=== PATIENT | male | born 2000 | race Caucasian/White ===

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

== ENCOUNTER → 2024-06-23 | Outpatient (CLI) | payer BC ==
[2024-06-24 02:49] LABS: Basophils # (A) 0.06 X 10*3/uL (0.00-0.10); Basophils % (A) 0.7 %; Eosinophils # (A) 0.09 X 10*3/uL (0.04-0.35); HCT 44.4 % (39.6-50.0); HGB 15.3 g/dL (13.0-17.0); Lymphocytes % (A) 31.4 %; MCH 29.8 pg (27.0-32.0); MCHC 34.5 g/dL (32.0-37.0); MCV 86.4 FL (80.0-97.0); Monocytes % (A) 8.1 %; NRBC Per 100 WBC 0 X 10*3/uL (0.00-0.01); Neutrophils # (A) 5.02 X 10*3/uL (1.80-7.70); Neutrophils % (A) 58.5 %; Platelet Count 280 X 10*3/uL (140-440); RBC 5.14 X 10*6/uL (4.40-5.60); RDW 11.4 % (11.5-14.5)
[2024-06-24 03:12] LABS: ALT 18 U/L (10-49); AST 17 U/L (14-35); Albumin 4.8 g/dL (3.8-4.9); Albumin/Globulin Ratio 1.85 Ratio (1.60-3.17); Alkaline Phosphatase 93 U/L (41-126); Amylase 33 U/L (23-121); BUN/Creat Ratio 19.73 Ratio (12.00-20.00); Blood Urea Nitrogen 21.7 mg/dL (9.0-27.0); Calcium 9.5 mg/dL (8.7-10.3); Chloride 102 mmol/L (96-109); Globulin 2.6 g/dL (1.6-3.3); Glucose 97 mg/dL (70-110); Lipase 25 U/L (14-60); Sodium 140 mmol/L (135-145); Total Bilirubin 0.2 mg/dL (0.3-1.2); Total Protein 7.4 g/dL (6.2-8.2)
== END | disposition home or self-care (01) ==
LOC: LABWHC1 16:06
PROVIDERS: ATTEND Nurse Practitioner Family
DX: Z11.59 Encounter for screening for other viral diseases (principal); R10.12 Left upper quadrant pain
CPT/HCPCS: 36415; 80053; 82150; 83690; 85025; 86803

== ENCOUNTER → 2024-06-30 | Outpatient (CLI) | payer BC ==
--- NOTE | 2024-06-30 08:07 | US ---
EXAMINATION TYPE: US abdomen complete DATE OF EXAM: 06/30/2024 COMPARISON: NONE CLINICAL INDICATION: Male, 24 years old with history of R10.12 LEFT UPPER QUADRANT PAIN; LUQ pain x 3 weeks. TECHNIQUE: Grayscale and color Doppler imaging of the abdomen was performed. FINDINGS: EXAM MEASUREMENTS: Liver Length: 15.8 cm Gallbladder Wall: 0.26 cm CBD: 0.23 cm, color Doppler imaging was utilized to isolate the common bile duct for measurement. Spleen: 12.2 cm Right Kidney: 12.9 x 5.8 x 4.5 cm Left Kidney: 12.2 x 6.2 x 5.1 cm TOOL COORDINATOR NOTES: Exam is limited due to gas. Pancreas: Portion of the body was seen. Limited visibility of head and tail. Liver: wnl, no dilated ducts, masses or cysts. Gallbladder: Measures 9.4 cm in length. Evidence for sonographic Joseph's sign: No CBD: Appears wnl Spleen: Appears wnl Right Kidney: Enlarged Left Kidney: wnl, No hydronephrosis, calculi or masses seen Upper IVC: Appears wnl Abd Aorta: *Distal segment and iliacs were obscured by gas. The visualized portions of pancreas unremarkable. The liver appears unremarkable. Gallbladder is mode rately distended without shadowing gallstones, wall thickening or surrounding fluid. Negative sonogra phic Joseph's sign. The common bile duct is within normal limits. The spleen is within normal limits. Both kidneys demonstrate no hydronephrosis, shadowing calculi or solid masses. The visualized portio ns of the upper IVC is within normal limits. The visualized portions of the abdominal aorta within no rmal limits however the distal segment and iliacs were obscured by overlying bowel gas. IMPRESSION: No ultrasound evidence for an acute process. [facility], , 06/30/2024 8:05 AM
== END | disposition home or self-care (01) ==
LOC: RADUSWWP 06:55
PROVIDERS: ATTEND Internal Medicine
DX: R10.12 Left upper quadrant pain (principal)
CPT/HCPCS: 76700